=== PATIENT | female | born 1990 | race Hispanic/Latino ===

== ENCOUNTER → 2021-06-11 12:45 | Outpatient (CLI) | payer OTHER, MEDICAID, SELFPAY ==
[2021-06-11 13:52] LABS: Add Manual Diff / Slide Review NO; Basophils Absolute Auto 0 /uL (0-100); Basophils Percent Auto 0.4 % (0-2); Eosinophils Absolute Auto 200 /uL (0-450); Eosinophils Percent Auto 1.6 % (2-4); Hemoglobin 12.7 g/dL (12.0-16.0); Lymphocytes Absolute Auto 1400 /uL (1100-4500); Lymphocytes Percent Auto 14.6 % (25-40); Mean Corpuscular HGB Conc 33.3 % (30-36); Mean Corpuscular Volume 89.9 fL (80-100); Monocytes Absolute Auto 500 /uL (0-900); Monocytes Percent Auto 5.2 % (3-14); Neutrophils Absolute Auto 7500 /uL (1500-7000); Neutrophils Percent Auto 78.2 % (50-75); Platelet Count 377 X10^3/uL (150-400); Red Blood Cell Count 4.22 X10^6/uL (4.0-5.2); Red Cell Distribution Width 12.8 % (11.6-14.8); White Blood Cell Count 9.6 X10^3/uL (4.5-11.0)
[2021-06-11 13:55] LABS: Appearance Urine UA CLEAR; Bilirubin Urine UA NEGATIVE (NEGATIVE); Color Urine UA YELLOW; Glucose Urine UA NEGATIVE (Negative); Ketones Urine UA NEGATIVE (NEGATIVE); Leukocyte Esterase Urine UA TRACE (NEGATIVE); Nitrite Urine UA NEGATIVE (Negative); Occult Blood Urine UA TRACE-INTACT (Negative); Protein Urine UA NEGATIVE (Negative); Specific Gravity Urine UA <=1.005 (1.000-1.035); Urobilinogen Urine UA 0.2 E.U./dL (0.2)
[2021-06-11 15:44] LABS: Amorphous Sediment Urine 2+; Bacteria Urine None Seen; RBC Urine 0-1/HPF (0-5/HPF); Squamous Epithelial Cell Urine 5-10 /HPF (0-5/HPF); WBC Urine 0-1/HPF (0-5/HPF)
[2021-06-11 20:10] LABS: HIV 1 & 2 Ab/Ag 4th Gen Combo NEGATIVE (NEGATIVE); Hep C Virus Ab w/Reflex Quant NEGATIVE s/c (NEGATIVE); Hepatitis B Surface Antigen NEGATIVE s/c (NEGATIVE); Rubella Antibody IgG 9.7 IU/mL (>15)
[2021-06-12 05:37] LABS: RPR Screen Non Reactive (Non Reactive)
[2021-06-12 13:16] LABS: Varicella IgG Antibody 286 index (Immune >165)
== END ==
PROVIDERS: Referring Provider Obstetrics & Gynecology; Visit Provider Obstetrics & Gynecology
DX: Z34.81 Encounter for supervision of other normal pregnancy, first trimester (principal)
CPT/HCPCS: 36415; 80055; 81003; 81015; 86787; 86803; 86850; 86900; 86901; 87086; 87389

== ENCOUNTER → 2021-08-06 13:24 | Outpatient (CLI) | payer OTHER, MEDICAID, SELFPAY ==
[2021-08-06 16:03] LABS: Urine N gonorrhoeae NOT DETECTED
[2021-08-06 16:22] LABS: Urine Chlamydia NOT DETECTED
== END ==
PROVIDERS: Visit Provider Obstetrics & Gynecology
DX: Z34.82 Encounter for supervision of other normal pregnancy, second trimester (principal); Z3A.17 17 weeks gestation of pregnancy
CPT/HCPCS: 87491; 87591

== ENCOUNTER → 2021-08-06 13:53 | Outpatient (CLI) | payer OTHER, MEDICAID, SELFPAY ==
[2021-08-08 21:14] LABS: AFP, Serum 74.4 ng/mL (.); Estriol, Free 1.58 ng/mL (.); Inhibin A, Dimeric 169.01 pg/mL (.); Inhibin A, MoM 1.15 (.); Maternal Ethnicity Other (.); Maternal Weight 163 lbs (.); Number of Fetuses No (.); OSBR Risk 1 IN 1135 (.); Results Report (.); Test Results *Screen Negative* (.); hCG, MoM 1.14 (.); hCG, Serum 31918 mIU/mL (.)
== END ==
PROVIDERS: Referring Provider Obstetrics & Gynecology; Visit Provider Obstetrics & Gynecology
DX: Z34.82 Encounter for supervision of other normal pregnancy, second trimester (principal); Z3A.17 17 weeks gestation of pregnancy
CPT/HCPCS: 36415; 82105; 82677; 84702; 86336; 87491; 87591

== ENCOUNTER → 2021-09-03 14:14 | Outpatient (CLI) | payer OTHER, MEDICAID, SELFPAY ==
--- NOTE | 2021-09-03 14:16 | DI.US.S_ITS ---
PROCEDURE: US OB >= 14 WEEKS FETUS INDICATIONS: ANATOMY OUTSIDE/PRIOR DATING DATA: Last menstrual period (LMP): 04/05/2021. LMP-based estimated date of delivery (KERRY): 01/10/2022. First dating scan (date and location): 06/11/2021. Estimated date of delivery (KERRY) from first dating scan: 01/11/2022. TECHNIQUE: Real-time scanning was performed of the fetus, with image documentation and biometric measurements. COMPARISON: [facility], , OB >= 14 WEEKS FETUS, 08/06/2021, 13:37. FINDINGS: General: A single living intrauterine gestation is present. Presentation: Breech. Placenta: Placental position is fundal, without previa. Amniotic fluid index: 14.8 cm, normal range is 5-24 cm. Largest pocket 6.5 cm. heart rate: 149 beats per minute. Maternal cervical canal: 3.9 cm long. Normal lower limit is 2.5 cm. biometrics: Biparietal diameter: 5.5 cm, 22 weeks 6 days. 92 percentile Head circumference: 20.5 cm, 22 weeks 4 days. 86 percentile Abdominal circumference: 18.7 cm, 23 weeks 3 days. 94 percentile Femur length: 3.8 cm, 22 weeks 1 day. 66 percentile Estimated gestational age from initial scan: 21 weeks 3 days. Composite gestational age from present scan: 22 weeks 5 days Estimated weight and percentile: 542 g, 98th percentile Measurement variability for biometric dating: +/- 7 days from 14 weeks to 15 weeks 6 days gestation, +/- 10 days from 16 weeks to 21 weeks 6 days gestation, +/- 2 weeks from 22 weeks to 27 weeks 6 days gestation, +/- 3 weeks for 28 weeks gestation or later. weight reference: 4500 g or EFW >90/95% is considered macrosomia or large for gestational age. EFW <10% is small for gestational age. EFW 5% or less is considered intra-uterine growth restriction. Anatomic survey: Neuro: Ventricles are non-dilated at less than 10 mm. Cisterna magna is normal at 3-11 mm. Cerebellum is normal in size and morphology. Nuchal skin fold: Normal at less than 6 mm between 14-21 weeks gestational age. Face: Nose and lips, facial profile are normal. Spine: No evidence for spina bifida. Heart: 4-chambered heart is present, with normal ventricular outflow tracts. Diaphragm: Diaphragm is intact. Stomach: Left-sided stomach is present. Kidneys: No hydronephrosis. Normal is less than 5 mm in 2nd trimester, less than 7 mm in 3rd trimester. Cord: 3-vessel cord has orthotopic insertion. Bladder: Normal in size. Extremities: All 4 extremities identified. IMPRESSION: 1. Layne living intrauterine at 22 weeks 5 days based on today's ultrasound. This is concordant with the prior ultrasound. Fetus is in the 98th percentile for weight. Abdominal circumference is in the 94th percentile. Consider follow-up Ob ultrasound evaluation for macrosomia. 2. Normal placenta and amniotic fluid. 3. Normal and complete anatomic survey. Dictated by: Andrea Kwan M.D. on 09/03/2021 at 17:05 Approved by: Andrea Kwan M.D. on 09/03/2021 at 17:10
== END ==
PROVIDERS: Referring Provider Obstetrics & Gynecology; Visit Provider Obstetrics & Gynecology
DX: Z34.82 Encounter for supervision of other normal pregnancy, second trimester (principal); Z3A.22 22 weeks gestation of pregnancy
CPT/HCPCS: 76811

== ENCOUNTER → 2021-09-15 12:35 | Outpatient (CLI) | payer OTHER, MEDICAID, SELFPAY ==
[2021-09-15 14:30] LABS: Hematocrit 31.7 % (36-46)
[2021-09-15 14:43] LABS: GTT (PREG) 1 Hour PP 50gm Dose 130 mg/dL (76-139)
== END ==
PROVIDERS: Referring Provider Obstetrics & Gynecology; Visit Provider Obstetrics & Gynecology
DX: Z34.82 Encounter for supervision of other normal pregnancy, second trimester (principal); Z3A.22 22 weeks gestation of pregnancy
CPT/HCPCS: 36415; 82950; 85014; 85018

== ENCOUNTER → 2022-01-01 13:39 | Outpatient (CLI) | payer OTHER, MEDICAID, SELFPAY ==
[2022-01-02 20:40] LABS: Strep Grp B PCR NEG for Grp B Strep
== END ==
PROVIDERS: Visit Provider Obstetrics & Gynecology
DX: Z36.85 Encounter for antenatal screening for Streptococcus B (principal); Z3A.36 36 weeks gestation of pregnancy
CPT/HCPCS: 87653

== ENCOUNTER → 2022-01-07 13:33 | Outpatient (CLI) | payer OTHER, MEDICAID, SELFPAY ==
[2022-01-07 14:28] LABS: COVID19 -Nasal RAPID Negative (Negative)
== END ==
PROVIDERS: Visit Provider Obstetrics & Gynecology
DX: Z01.812 Encounter for preprocedural laboratory examination (principal); Z20.822 Contact with and (suspected) exposure to COVID-19
CPT/HCPCS: 87635; C9803

== ENCOUNTER 2022-01-08 05:47 | Inpatient (IN) | payer OTHER, MEDICAID, SELFPAY ==
[2022-01-08] MEDS: LACTATED RINGERS 1,000 ML 100 ML IV ×3 (06:30→09:02)
[2022-01-08 06:51] VITALS: BP 118/69
--- NOTE | 2022-01-08 07:23 | SUR.OPER ---
Supine on Padded OR bed, head on pillow, safety belt at thigh, arms secured on padded arm boards at <90 degrees abduction. Bump under right buttock. Legs uncrossed with pillow under knees, gel pad to heels, tape over blanket to lower legs.
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
--- NOTE | 2022-01-08 07:42 | PM.PREOP ---
Pre-operative Note COVID-19 COVID-19 status: Negative Result date/Date tested (Pos, Neg/Pending): 01/07/22 Criteria for continued procedure: Non-surgical alternatives not available or appropriate per current SOC Interval Note History & Physical reviewed/Exam performed by Physician: Yes Changes to H&P: No H&P completed within 30 days and has changed as indicated here:: 01/08/22
[2022-01-08 08:09] LABS: Add Manual Diff / Slide Review NO; Basophils Absolute Auto 100 /uL (0-100); Basophils Percent Auto 0.6 % (0-2); Eosinophils Absolute Auto 300 /uL (0-450); Eosinophils Percent Auto 2.8 % (2-4); Hemoglobin 11.6 g/dL (12.0-16.0); Lymphocytes Absolute Auto 2100 /uL (1100-4500); Lymphocytes Percent Auto 21.2 % (25-40); Mean Corpuscular HGB Conc 33.3 % (30-36); Mean Corpuscular Hemoglobin 29.5 PG (26-34); Mean Corpuscular Volume 88.8 fL (80-100); Monocytes Absolute Auto 700 /uL (0-900); Monocytes Percent Auto 7.5 % (3-14); Neutrophils Absolute Auto 6800 /uL (1500-7000); Neutrophils Percent Auto 67.9 % (50-75); Platelet Count 293 X10^3/uL (150-400); Red Blood Cell Count 3.94 X10^6/uL (4.0-5.2); Red Cell Distribution Width 13.6 % (11.6-14.8); White Blood Cell Count 9.9 X10^3/uL (4.5-11.0)
[2022-01-08] MEDS: CEFAZOLIN 2 GM/20 ML SYRINGE IV (08:20)
[2022-01-08] MEDS: SODIUM CHLORIDE 0.9% 9 ML, TRIAMCINOLONE 10 MG INJ (08:32)
--- NOTE | 2022-01-08 08:44 | SUR.OPER ---
Viable males delivered by section at 08:36. Cord blood vials x2 and placenta sent with L&D RN.
[2022-01-08] MEDS: KETOROLAC 30 MG/ML VIAL IV ×3 (09:04→22:16)
[2022-01-08 09:21] VITALS: BP 108/52; PULSE 95; RESP 16; TEMP 36.3; O2SAT 100
[2022-01-08 09:26] VITALS: BP 106/61; PULSE 96; RESP 15; O2SAT 100
[2022-01-08 09:31] VITALS: BP 102/60; PULSE 86; RESP 15; TEMP 36.8; O2SAT 100
--- NOTE | 2022-01-08 09:31 | PM.OBCS.1 ---
Operative Date/Time/Diagnoses Date of procedure: 01/08/22 Time of procedure: 09:31 Pre-op diagnosis: Thirty-nine weeks gestation Keloid scar Previous section Post-op diagnosis: same Procedure & Clinicians Procedure: Repeat low-transverse section Excision of keloid scar Same procedure as scheduled: Yes Indications: 39 weeks gestation Keloid scar Previous section Surgeon: Jazmyn Shook Yes if Unassisted: No Pharmacy Service Associate: Fadumo Hayes Anesthesia Type: Spinal Operative Notes Findings: Live male infant in the M[facility]INO presentation Very thin lower uterine segment with fluid, vernix, and hair visible through the uterine wall Normal tubes and ovaries Keloid scar of the Pfannenstiel incision Closure Type: primary Specimen(s): cord blood and placenta Intraoperative meds administered: Ketorolac and Pitocin Applied: Catheter (To continuous drainage) Estimated Blood Loss (mL): 400 Blood products transfused: none Procedure in detail: The patient was taken to the operating room where she was placed in the seated position. Spinal anesthesia with was administered. The patient was then placed in the dorsal supine position with a leftward tilt. She was prepped and draped in the usual sterile fashion. A timeout was performed. After spinal analgesia was found to be adequate, the previous Pfannenstiel incision was excised in an elliptical fashion. The fascia was nicked in the midline, and the incision extended bilaterally with the Baugh scissors. The superior aspect of the fascial incision was grasped with a Mynor clamps, elevated, and the underlying rectus muscles dissected off sharply and bluntly. Attention was then turned to the inferior aspect of this incision which in a similar fashion was grasped with a [place] clamps, elevated, and the underlying rectus muscles dissected off sharply and bluntly. The rectus muscles were in the midline. The peritoneum was identified, grasped between 2 hemostats, and entered sharply with the Metzenbaum scissors. This incision was extended superiorly and inferiorly with good visualization of the bladder. The bladder blade was inserted. The vesicouterine peritoneum was identified, grasped with the pickup, and entered sharply with the Metzenbaum scissors. This incision was extended bilaterally, and the bladder flap was created digitally. The bladder blade was reinserted. The lower uterine segment was found to be so thin that fluid, baby's hair, and vernix could be visualized through the uterine wall. The lower uterine segment was incised in a transverse fashion with the scalpel. Upon entering the amniotic sac there was large amount of clear amniotic fluid. The 's head was delivered without difficulty. The nose and mouth were suctioned with bulb suction. The remainder of the body delivered without difficulty. The cord was double clamped and cut after 1 minute. The infant was handed off to waiting RN and RT. The placenta was delivered manually. The uterus was cleared of all clots and debris. The cervix was opened using a ring forcep. The uterine incision was repaired with #1 chromic in a running interlocking fashion, and a second layer the same suture was used for an imbricating layer. Hemostasis was achieved. The tubes and ovaries were examined and were found to be normal. The gutters were cleared of all clots and debris. The bladder flap was reapproximated using 2-0 Vicryl in a running fashion. The parietal peritoneum was closed using 2-0 Vicryl in a running fashion. The fascia was reapproximated using 0 Vicryl in a running fashion. The subcutaneous layer was copiously irrigated with warm normal saline. 5 simple interrupted sutures of 3-0 Vicryl were placed to reapproximate the subcutaneous layer. The skin was closed with 4-0 Monocryl in a subcuticular fashion. Steri-Strips were placed. An Aquacel dressing was placed. The uterus was expressed of a small amount of old blood. Sponge, lap, and instrument counts were correct x-2. The patient tolerated the procedure well, and was taken to PACU in stable condition. Complications: none Baby 1: Gender: Male Presentation: vertex Position: Right Occiput Anterior Placental Delivery Description: Manual Removal Cord Vessel Description: 3 Vessels and Clamped/Cut (after 1 minute) score (1 min): 9 score (5 min): 9 weight: 8 lb 15.1 oz Post-operative Condition: stable Disposition: PACU Aftercare: routine postop
[2022-01-08] MEDS: OXYCODONE IR 5 MG TABLET PO ×3 (11:01→19:58)
[2022-01-08] MEDS: LANOLIN OINT 7 GM 1 APPLIC TOP (15:19)
[2022-01-09] MEDS: OXYCODONE IR 5 MG TABLET PO ×2 (00:01→04:00)
[2022-01-09] MEDS: KETOROLAC 30 MG/ML VIAL IV (04:00)
[2022-01-09 05:15] LABS: Hemoglobin 11.3 g/dL (12.0-16.0)
[2022-01-09] MEDS: PRENATAL VIT,CALC/IRON/FOLIC 1 TABLET 1 TAB PO (12:37)
[2022-01-09] MEDS: DOCUSATE 100 MG CAPSULE 200 MG PO (12:37)
[2022-01-09] MEDS: IBUPROFEN 600 MG TABLET PO ×2 (12:38→20:21)
[2022-01-09] MEDS: ACETAMINOPHEN 325 MG TABLET 650 MG PO (17:44)
[2022-01-10] MEDS: ACETAMINOPHEN 325 MG TABLET 650 MG PO ×2 (01:01→08:54)
[2022-01-10] MEDS: IBUPROFEN 600 MG TABLET PO ×2 (02:33→08:54)
[2022-01-10] MEDS: DOCUSATE 100 MG CAPSULE 200 MG PO (08:54)
[2022-01-10] MEDS: OXYCODONE IR 5 MG TABLET PO (08:54)
[2022-01-10] MEDS: PRENATAL VIT,CALC/IRON/FOLIC 1 TABLET 1 TAB PO (08:54)
--- NOTE | 2022-01-10 11:26 | PM.OBPN.1 ---
Subjective - OB Subjective Patient comments: no complaints, pain well controlled and tolerating diet baby status: doing well and nursing well feeding status: exclusively breast feeding Date Patient Seen: 01/09/22 Time Patient Seen: 09:30 Interval history: Patient is a 31-year-old postop day # 1 status post repeat low-transverse section and revision of Pfannenstiel scar. Patient has been able to void without the catheter. She is tolerating a diet. is going well. Her pain is well controlled. Exam Vital Signs (past 8 hours): Oxygen Delivery Method Room Air Narrative Exam Narrative: Generally: Patient is sitting up in bed, holding , no acute distress Lungs: Clear to auscultation bilaterally Cardiovascular: Regular rate and rhythm Fundus: U -1 Incision: Clean dry and intact with Aquacel dressing Extremities: Trace edema, negative Homans Objective Labs Result Diagrams: 01/09/22 05:04 Assessment & Plan Plan day: 1 plan OB: routine postop care Time Spent With Patient Time: Total time spent is greater than 50% in coordination of care (as documented) at patient's floor/unit and/or counseling patient: Time with patient: 15-24 minutes
--- NOTE | 2022-01-10 11:32 | PM.OBDS.1 ---
Discharge Providers Provider Date of admission: 01/08/22 05:47 Discharge Date: 01/10/22 Primary care physician: Doctor Phillip MD Consults: 01/08/22 10:33 Consult to [facility] Location Manager Routine Comment: Discharge provider: Jazmyn Guzmán MD Summary Hospital Course Date Patient Seen: 01/10/22 Time Patient Seen: 10:15 Diagnoses: 39 5/7 weeks gestation previous section keloid scar repeat low-transverse section scar revision Hospital Course: Patient is a 31-year-old 3 para 2 who presented on January 08, 2022 for a scheduled repeat low-transverse section and scar revision. She underwent these procedures without complication. On postop day # 1 her catheter was removed and she was able to void without the catheter. Her pain has been well controlled. is going well. She is tolerating a diet. Her bleeding is tapering. Peripartum Data Infant Delivery Method: Section ( Repeat as well as scar revision) Procedures: Repeat low-transverse section Scar revision complications: none 1: Gender: Male Disposition of : home Status at Discharge Cognitive/behavioral status at discharge: oriented Functional status at discharge: independent ambulation Overall status at discharge: patient is progressing back to baseline Time Spent with Patient Time attestation: Total time spent providing and/or coordinating discharge services: Time spent: Less than 30 minutes Objective Labs Result Diagrams: 01/09/22 05:04 Exam Vital Signs (past 8 hours): Oxygen Delivery Method Room Air Narrative Exam Narrative: Generally: Patient is sitting up in bed, holding infant Lungs: Clear to auscultation bilaterally Cardiovascular: Regular rate and rhythm Fundus: Firm at U -2 Incision: Clean dry and intact with Aquacel dressing Extremities: Negative Homans, trace edema Discharge Plan Discharge Plan Provider Discharge Comment: Call with fever, chills, redness or drainage around the incision, or bleeding vaginally more than a pad in an hour Ibuprofen 600 mg every 6 hours as needed Tylenol 650 mg every 6 hours as needed Colace stool softener as needed until bowels return to normal Discharge orders & Medications Discharge Orders: Discharge (Order); Ordered 01/10/22 Ordered By: Jazmyn Guzmán Prescriptions: New oxycodone 5 mg tablet 5 mg PO Q4H PRN (Reason: pain) Qty: 20 0RF Continued prenat.vits,andi,[id number] Tablet 1 tab PO DAILY 0RF Follow up/Referrals: Jamzyn Guzmán MD [Physician] - 1 Week Doctor Fisher MD [Primary Care Provider] - (Pt has appt on 01/15/2022 @ 1300 Pt has incision check appt with on 01/14/22 @ 0945) Diet/Activity/Treatments Diet: Regular Activity: No heavy lifting. Nothing more than the baby for 2 weeks Skin/Wound/Dressing Care Report to your healthcare provider any signs of infection, such as:: chills, fever, increased pain, unusual drainage and unusual redness Dressing: Do not remove Visit Report/Discharge Packet Instructions: DI for , DI for Prescription Opioid Use Discharge Data Primary Care Provider: Doctor Phillip
[2022-01-10 11:47] VITALS: BP 102/60; PULSE 86; RESP 15; TEMP 36.8
== END 2022-01-10 12:45 | disposition home or self-care (01) | DRG 540 ==
PROVIDERS: Admitting Provider Obstetrics & Gynecology; Referring Provider Obstetrics & Gynecology; Visit Provider Obstetrics & Gynecology
PROC: 10D00Z1 Extraction of Products of Conception, Low, Open Approach (ICD-10-PCS; CPT 59514; principal; 2022-01-08 07:45)
DX: O34.211 Maternal care for low transverse scar from previous cesarean delivery (principal); Z3A.39 39 weeks gestation of pregnancy; Z37.0 Single live birth; O99.891 Other specified diseases and conditions complicating pregnancy; L91.0 Hypertrophic scar; Z01.812 Encounter for preprocedural laboratory examination; Z20.822 Contact with and (suspected) exposure to COVID-19
CPT/HCPCS: 36415; 59050; 59514; 85014; 85018; 85025; 86850; 86900; 86901; 87635; C9803; J0690; J1885; J2590; J3301